=== PATIENT | male | born 1970 | race Two or more races ===

== ENCOUNTER 2019-06-08 09:10 | Day surgery (SDC) | payer OTHER | END 2019-06-08 16:45 | disposition home or self-care (01) | LOC: AMB-ENDOS 09:10 | DX: K92.1 Melena (principal); K64.1 Second degree hemorrhoids ==

== ENCOUNTER 2019-10-08 02:44 | Emergency (ER) | payer OTHER ==
[~2019-10-08] VITALS: Ht 170.2 cm; Wt 90.7 kg
[2019-10-08] MEDS ORDERED: CLEOCIN HCL300 MG PO (07:40)
== END 2019-10-08 08:22 | disposition home or self-care (01) ==
LOC: ER 02:44
DX: K04.7 Periapical abscess without sinus (principal)